=== PATIENT | female | born 1960 ===

== ENCOUNTER 2022-03-13 13:41 | Emergency (ER) | payer BC ==
[2022-03-13] MEDS ORDERED: Ketorolac Tromethamine 30 MG/ML VIAL ONE (14:04)
== END 2022-03-13 14:40 | disposition home or self-care (01) ==
LOC: ERS 13:41
DX: S49.91XA Unspecified injury of right shoulder and upper arm, initial encounter (principal); E03.9 Hypothyroidism, unspecified; Z79.899 Other long term (current) drug therapy; V18.2XXA Unspecified pedal cyclist injured in noncollision transport accident in nontraffic accident, initial encounter
CPT/HCPCS: 96374; J1885